=== PATIENT | male | born 1975 | race Native Hawaiian/Other Pacific Islander ===

== ENCOUNTER 2017-03-05 20:26 | Emergency (ER) | payer BC ==
[~2017-03-05] VITALS: Ht 177.8 cm; Wt 117.9 kg
[~2017-03-05 20:26] MED LIST: BENICAR HCT1 TA1 PO; FLUC150T PO; MOBIC7.5 M1 PO; NEXIUM40 M1 PO; NYSTCRE EX
[2017-03-06 00:12] VITALS: BP 145/97; TEMP 98.2
== END 2017-03-06 00:12 | disposition home or self-care (01) ==
LOC: ED 20:26
DX: R09.89 Other specified symptoms and signs involving the circulatory and respiratory systems (principal); T17.228A Food in pharynx causing other injury, initial encounter; I10 Essential (primary) hypertension
CPT/HCPCS: 99283

== ENCOUNTER 2019-08-07 00:35 | Emergency (ER) | payer BC ==
[~2019-08-07] VITALS: Ht 177.8 cm; Wt 131.5 kg
[2019-08-07 03:08] VITALS: BP 119/82; TEMP 98.4
== END 2019-08-07 03:08 | disposition home or self-care (01) ==
LOC: ED 00:35
DX: M54.5 Low back pain (principal)
CPT/HCPCS: 81000; 96372; 99283; J1885

== ENCOUNTER 2019-12-12 11:47 | Outpatient (CLI) | payer BC ==
[2019-12-12 13:07] LABS: PLATELET COUNT 241 K/uL (142-355)
[2019-12-12 13:34] LABS: POTASSIUM 3.8 mmol/L (3.6-5.2); SODIUM 142 mmol/L (136-145)
== END 2019-12-12 21:28 | disposition home or self-care (01) ==
LOC: LABW 11:47
PROVIDERS: Nurse Practitioner Family
DX: R60.0 Localized edema (principal)
CPT/HCPCS: 36415; 80053; 82550; 82553; 83880; 84484; 85027

== ENCOUNTER 2019-12-19 09:27 | Observation (INO) | payer BC ==
[~2019-12-19] VITALS: Ht 177.8 cm; Wt 132.1 kg
[2019-12-19 12:13] LABS: PLATELET COUNT 236 K/uL (142-355)
[2019-12-19 12:27] LABS: PARTIAL THROMBOPLASTIN TIME 26.7 SECONDS (24.5-33.6)
[2019-12-19 12:28] LABS: POTASSIUM 3.6 mmol/L (3.6-5.2); SODIUM 138 mmol/L (136-145)
[2019-12-19 14:13] VITALS: BP 135/88; TEMP 98.9; Ht 177.8 cm; Wt 132.1 kg
[2019-12-19] MEDS ORDERED: PANTOPRAZOLE 40MG TA PO (14:45)
[2019-12-19] MEDS ORDERED: NAPROSYN250 MG PO (14:45)
[2019-12-19] MEDS ORDERED: GABA100C2 PO (14:46)
[2019-12-19] MEDS ORDERED: AMLODIPINE BESYLATE PO (14:47)
[2019-12-19] MEDS ORDERED: LISI20TA31 PO (14:48)
[2019-12-19 16:00] VITALS: BP 122/59; TEMP 98.4
[2019-12-19 20:00] VITALS: BP 100/60; TEMP 98.2
[2019-12-20] VITALS: BP 104/54; TEMP 97.5
[2019-12-20 04:01] VITALS: BP 106/61; TEMP 97.8
[2019-12-20 06:16] LABS: PLATELET COUNT 208 K/uL (142-355)
[2019-12-20 06:36] LABS: POTASSIUM 3.6 mmol/L (3.6-5.2)
--- NOTE | 2019-12-20 15:10 | NUR ---
1300 INFORMATION FOR ECHO, STRESS AND MRI OF CSPINE GIVEN TO ELENA AT [facility] FOR APPTS TO BE MADE FOR PT OUT-PT. PER DR LE APPT WILL BE MADE BY [facility] FOR HOSP F/U. PT AWARE
== END 2019-12-20 14:02 | disposition home or self-care (01) ==
LOC: MED/SURG 09:27
PROVIDERS: ADMIT Family Medicine
DX: R07.9 Chest pain, unspecified (principal)
CPT/HCPCS: 36415; 80053; 81000; 82550; 82728; 83735; 84100; 84484; 85027; 85379; 85610; 85730; 86140; 86318; 87635; 90715; 93005; 99220; G0378; G0379; J1650; U0003

== ENCOUNTER 2020-01-09 12:51 | Outpatient (CLI) | payer BC ==
[~2020-01-09 12:51] MED LIST changes: +AMLODIPINE BESYLATE PO; +GABA100C2 PO; +LISI20TA31 PO; +NAPROSYN250 MG PO; +PANTOPRAZOLE 40MG TA PO
== END 2020-01-09 19:23 | disposition home or self-care (01) ==
LOC: RESP 12:51
DX: I10 Essential (primary) hypertension (principal)

== ENCOUNTER 2020-01-12 08:10 | Outpatient (CLI) | payer BC | END 2020-01-12 23:32 | disposition home or self-care (01) | LOC: NM 08:10 | DX: I10 Essential (primary) hypertension (principal) | CPT/HCPCS: A9500 ==

== ENCOUNTER 2020-02-01 09:40 | Outpatient (CLI) | payer BC | END 2020-02-01 22:51 | disposition home or self-care (01) | LOC: US 09:40 | DX: R10.11 Right upper quadrant pain (principal) ==

== ENCOUNTER 2020-04-11 07:53 | Outpatient (CLI) | payer BC | END 2020-04-11 22:08 | disposition home or self-care (01) | LOC: NM 07:53 | PROVIDERS: ATTEND Internal Medicine Gastroenterology | DX: R10.11 Right upper quadrant pain (principal) | CPT/HCPCS: A9537 ==

== ENCOUNTER 2020-09-14 08:56 | Outpatient (CLI) | payer BC | END 2020-09-14 22:17 | disposition home or self-care (01) | LOC: LABW 08:56 → RAD 08:56 | PROVIDERS: ATTEND Nurse Practitioner Family | DX: M79.642 Pain in left hand (principal); M79.641 Pain in right hand; M25.572 Pain in left ankle and joints of left foot; M25.571 Pain in right ankle and joints of right foot; Z79.899 Other long term (current) drug therapy; R21 Rash and other nonspecific skin eruption ==

== ENCOUNTER 2021-01-31 15:14 | Outpatient (CLI) | payer BC | END 2021-01-31 19:34 | disposition home or self-care (01) | LOC: CT 15:14 | PROVIDERS: ATTEND Nurse Practitioner Family | DX: L03.116 Cellulitis of left lower limb (principal) ==

== ENCOUNTER 2021-08-13 12:20 | Outpatient (CLI) | payer BC | END 2021-08-13 18:54 | disposition home or self-care (01) | LOC: RAD 12:20 | PROVIDERS: ATTEND Nurse Practitioner Family | DX: M54.12 Radiculopathy, cervical region (principal) ==

== ENCOUNTER 2021-08-19 12:50 | Outpatient (CLI) | payer BC | END 2021-08-19 20:58 | disposition home or self-care (01) | LOC: CT 12:50 | PROVIDERS: ATTEND Nurse Practitioner Family | DX: R51.9 Headache, unspecified (principal) ==

== ENCOUNTER 2021-10-07 10:58 | Outpatient (CLI) | payer BC | END 2021-10-07 19:01 | disposition home or self-care (01) | LOC: RAD 10:58 | PROVIDERS: ATTEND Physician Assistant | DX: M06.09 Rheumatoid arthritis without rheumatoid factor, multiple sites (principal) ==

== ENCOUNTER 2021-11-07 15:50 | Outpatient (CLI) | payer BC ==
[~2021-11-07] VITALS: Ht 177.8 cm; Wt 129.3 kg
[2021-11-07 16:04] VITALS: BP 146/87; TEMP 98.4
[2021-11-07 16:35] VITALS: BP 133/79; TEMP 98.6
[2021-11-07 16:50] VITALS: BP 133/76; TEMP 98.5
[2021-11-07 17:05] VITALS: BP 121/73; TEMP 98.1
--- NOTE | 2021-11-07 18:27 | NUR ---
1604 PT AMBULATED TO ROOM 1126 ACCOMPANIED BY HIS . VS OBTAINED 24G PIV TO LACX3 ATTEMPTS. 1635 BEBTELOVIMAB IVP OVER 30SECONDS FOLLOWED BY 10 ML NS FLUSH. PT TOLERATED WELL WILL MONITOR VS PER ORDERS 1743 PT TOLERATED INFUSION WITH NO ADVERSE REACTIONS SUSPECTED. 24G PIV D/C INTACT SITE CARE PROVIDED. PT AMBULATED OUT OF FACILITY TO POV IN NO DISTRESS ACCOMPANIED BY HIS .
== END 2021-11-07 19:09 | disposition home or self-care (01) ==
LOC: INF 15:50
PROVIDERS: ATTEND Family Medicine
DX: Z23 Encounter for immunization (principal); U07.1 COVID-19
CPT/HCPCS: 96374; Q0222

== ENCOUNTER 2021-12-25 08:34 | Outpatient (CLI) | payer BC ==
[2021-12-25 08:54] LABS: PLATELET COUNT 269 K/uL (142-355)
== END 2021-12-25 18:56 | disposition home or self-care (01) ==
LOC: LABW 08:34
PROVIDERS: ATTEND Internal Medicine Hematology & Oncology
DX: E83.119 Hemochromatosis, unspecified (principal)
CPT/HCPCS: 36415; 85027

== ENCOUNTER 2022-01-01 10:59 | Outpatient (CLI) | payer BC ==
[2022-01-01 11:45] LABS: PLATELET COUNT 256 K/uL (142-355)
== END 2022-01-01 19:09 | disposition home or self-care (01) ==
LOC: LABW 10:59
PROVIDERS: ATTEND Internal Medicine Hematology & Oncology
DX: E83.119 Hemochromatosis, unspecified (principal)
CPT/HCPCS: 36415; 85027

== ENCOUNTER 2022-01-07 09:14 | Outpatient (CLI) | payer BC ==
[2022-01-07 09:30] LABS: PLATELET COUNT 257 K/uL (142-355)
== END 2022-01-07 19:28 | disposition home or self-care (01) ==
LOC: LABW 09:14
PROVIDERS: ATTEND Internal Medicine Hematology & Oncology
DX: E83.119 Hemochromatosis, unspecified (principal)
CPT/HCPCS: 36415; 85027

== ENCOUNTER 2022-01-16 08:41 | Outpatient (CLI) | payer BC ==
[2022-01-16 09:23] LABS: POTASSIUM 4.5 mmol/L (3.6-5.2)
[2022-01-16 10:18] LABS: PLATELET COUNT 297 K/uL (142-355)
== END 2022-01-16 19:09 | disposition home or self-care (01) ==
LOC: LABW 08:41
PROVIDERS: ATTEND Internal Medicine Hematology & Oncology
DX: E83.119 Hemochromatosis, unspecified (principal)
CPT/HCPCS: 36415; 80053; 82728; 83540; 83550; 85027

== ENCOUNTER 2022-10-23 14:33 | Outpatient (CLI) | payer BC ==
[2022-10-23 14:53] LABS: PLATELET COUNT 268 K/uL (142-355)
[2022-10-23 14:59] LABS: POTASSIUM 3.8 mmol/L (3.6-5.2)
== END 2022-10-23 19:23 | disposition home or self-care (01) ==
LOC: LABW 14:33
PROVIDERS: ATTEND Physician Assistant
DX: E83.119 Hemochromatosis, unspecified (principal); K76.0 Fatty (change of) liver, not elsewhere classified
CPT/HCPCS: 36415; 80053; 82728; 83540; 83550; 85027

== ENCOUNTER 2022-10-31 08:41 | Outpatient (CLI) | payer BC ==
[2022-10-31 09:05] LABS: PLATELET COUNT 243 K/uL (142-355)
[2022-10-31 09:44] LABS: POTASSIUM 3.6 mmol/L (3.6-5.2)
== END 2022-10-31 19:02 | disposition home or self-care (01) ==
LOC: LABW 08:41
PROVIDERS: ATTEND Physician Assistant
DX: E83.119 Hemochromatosis, unspecified (principal)
CPT/HCPCS: 36415; 80053; 82728; 83540; 83550; 85027

== ENCOUNTER 2022-12-10 10:59 | Outpatient (CLI) | payer BC | END 2022-12-10 18:57 | disposition home or self-care (01) | LOC: US 10:59 | PROVIDERS: ATTEND Specialist | DX: N28.1 Cyst of kidney, acquired (principal) ==